=== PATIENT | female | born 1955 | race Caucasian/White ===

== ENCOUNTER 2016-07-12 12:41 | Day surgery (SDC) | payer OTHER ==
[~2016-07-12] VITALS: Ht 152.4 cm; Wt 90.7 kg
[~2016-07-12 12:41] MED LIST: ADVAIR 250/501 DISK IH; AMLODIPINE BESY10 MG PO; AMLODIPINE BESYL5 MG PO; AMOXICILLIN500 MG PO; APRESOLINE50 MG PO; ASPERDRINK81 MG PO; ATORVASTATIN CA80 MG PO; AVENTYL,PAMELOR10 MG PO; BENTYL10 MG PO; CIPRO500 MG PO; COUMADIN1 MG PO; COUMADIN2 MG PO; COUMADIN3 MG PO; COUMADIN5 MG PO; COUMADIN6 MG PO; DICYCLOMINE HCL20 MG PO; ERGOCALCIF50000 UNIT PO; FENOFIBRATE160 M1 PO; FLAGYL500 MG PO; FLUOXETINE HCL20 MG PO; FUROSEMIDE20 MG PO; FUROSEMIDE40 MG PO; GABAPENTIN300 MG PO; GLUCOPHAGE1000 MG PO; HUMALOG100 UNIT/1 SC; HYDRALAZINE HCL25 MG PO; HYDRALAZINE HCL50 MG PO; HYDROCODON-ACE1 EAC7 PO; IMDUR30 MG PO; IMDUR60 MG PO; ISOSORBIDE DINI30 MG PO; JARDIANCE10 MG PO; K-DUR20 MEQ PO; KEFLEX500 MG PO; LASIX20 MG PO; LASIX40 MG PO; LEVEMIR100 UNIT/2 SC; LEVOFLOXACIN750 MG PO; LEVOTHYROXINE100 MCG PO; LEVOXYL125 MCG PO; LEVOXYL75 MCG PO; LIPITOR80 MG PO; LISINOPRIL10 MG PO; LISINOPRIL5 MG PO; LOPRESSOR100 M1 PO; LOPRESSOR25 MG PO; LOSARTAN POTAS100 MG PO; LOVAZA1 GM PO; METOCLOPRAMIDE H5 MG PO; METOCLOPRAMIDE10 MG PO; NEURONTIN300 MG PO; NORVASC10 MG PO; NOVOLIN,HU100 UNITS1 SC; NOVOLOG 10100 UNITS/ SC; OMEPRAZOLE20 MG PO; OMEPRAZOLE40 M1 PO; PERCOCET 5/31 TABLET PO; PREDNISONE10 MG PO; PRILOSEC20 MG PO; PRILOSEC40 MG PO; PRINIVIL5 MG PO; PROAIR HFA8.5 GM IH; PROCARDIA20 MG PO; PROMETHAZINE HC25 M1 PO; PROZAC20 MG PO; PROZAC40 MG PO; RANEXA1000 MG PO; REGLAN10 MG PO; SEROQUEL12.5 MG PO; SYNTHROID75 MCG PO; TRADJENTA5 MG PO; TYLENOL REGULA325 MG PO; VESICARE10 MG PO; WARFARIN SODIUM5 MG PO; WELLBUTRIN XL150 MG PO; WELLBUTRIN XL300 MG PO; ZOFRAN4 MG PO
[2016-07-12 13:17] LABS: POINT-OF-CARE METER ID UU13113696; POINT-OF-CARE USER ID HMLCJM07
== END 2016-07-12 15:20 | disposition home or self-care (01) ==
LOC: CATH 12:41
PROVIDERS: Internal Medicine Cardiovascular Disease
PROC: 0JH63PZ Insertion of Cardiac Rhythm Related Device into Chest Subcutaneous Tissue and Fascia, Percutaneous Approach (ICD-10-PCS; principal; 2016-07-12)
DX: R55 Syncope and collapse (principal); I25.2 Old myocardial infarction; E78.5 Hyperlipidemia, unspecified; E11.9 Type 2 diabetes mellitus without complications; Z79.4 Long term (current) use of insulin; I10 Essential (primary) hypertension; I25.10 Atherosclerotic heart disease of native coronary artery without angina pectoris; I25.5 Ischemic cardiomyopathy; Z86.711 Personal history of pulmonary embolism; Z79.01 Long term (current) use of anticoagulants; Z87.891 Personal history of nicotine dependence
CPT/HCPCS: 82948; C1764; J0690; J1200; J2250; J3010; S0020

== ENCOUNTER 2016-08-16 11:59 | Inpatient (IN) | payer OTHER ==
[~2016-08-16] VITALS: Ht 167.6 cm; Wt 95.1 kg
[2016-08-16 13:06] LABS: HEMATOCRIT 29.2 % (36.0-46.0); MCH 29.5 PG (29.0-34.0); MCHC 31.8 G/DL (30.0-36.0); MCV 92.7 FL (83-99); MEAN PLAT.VOLUME 10.7 uM^3 (9.5-12.4); PLATELET COUNT 130 K/uL (156-360); RBC DIS.WIDTH-CV 15.3 % (11.8-14.6); RBC DIS.WIDTH-SD 50.7 % (39-53); RED BLOOD COUNT 3.15 M/uL (3.80-5.20); WHITE BLOOD COUNT 5.9 K/uL (4.1-10.2)
[2016-08-16 13:18] LABS: CHLORIDE 116 mEq/L (99-109); POTASSIUM 5.4 mEq/L (3.7-5.4); SODIUM 142 mEq/L (136-147)
[2016-08-16 13:20] LABS: GLUCOSE 50 mg/dL (70-99)
[2016-08-16 13:22] LABS: ANION GAP 8 MEQ/L (2-14)
[2016-08-16 13:24] LABS: GFR ESTIMATE (CALCULATED) 24 mL/min/
[2016-08-16 13:25] LABS: UREA NITROGEN (BUN) 33 mg/dL (9-23)
[2016-08-16 13:32] LABS: TROP-I INTERPRETATION NEGATIVE; TROPONIN-I < 0.01 ng/mL (0.0-0.30)
[2016-08-16 14:42] LABS: INTER. NORMALIZED RATIO 1.9; PROTHROMBIN TIME 19.5 (9.2-11.2)
[2016-08-16 15:28] LABS: POINT-OF-CARE METER ID UU14100415
[2016-08-16 16:47] LABS: POINT-OF-CARE METER ID UU14100415
[2016-08-16] MEDS ORDERED: SEROQUEL50 MG PO (16:57)
[2016-08-16] MEDS ORDERED: LASIX40 MG PO (16:58)
[2016-08-16] MEDS ORDERED: COUMADIN5 MG PO (16:59)
[2016-08-16 19:12] LABS: ADD MIUA? YES; BILIRUBIN NEGATIVE; BLOOD NEGATIVE; COLOR AMBER ((YELLOW)); GLUCOSE (STRIP) 50; KETONES NEGATIVE; LEUKOCYTES TRACE; NITRITE NEGATIVE; PROTEIN (STRIP) >=500; SPECIFIC GRAVITY 1.024 (1.000-1.030); UROBILINOGEN 0.2 MG/DL (0.2-1.0)
[2016-08-16 19:18] LABS: BACTERIA NONE SEEN /HPF; EPITHELIAL CELLS RARE /HPF; MUCUS TRACE /LPF; RED BLOOD CELLS 0-5 /HPF (0-5); UCUL ADDED? NO; WHITE BLOOD CELLS 30-40 /HPF (0-5)
[2016-08-16] MEDS ORDERED: LEVEMIR100 UNIT/2 SC ×2 (20:21→20:22)
[2016-08-16 20:30] VITALS: BP 151/79
[2016-08-16 20:43] VITALS: BP 151/71
[2016-08-16 21:36] LABS: POINT-OF-CARE USER ID ENVKC36
[2016-08-16 23:27] VITALS: BP 163/71
[2016-08-17 03:00] VITALS: BP 160/76
[2016-08-17 06:37] LABS: HEMATOCRIT 27.4 % (36.0-46.0); MCH 30.1 PG (29.0-34.0); MCHC 32.1 G/DL (30.0-36.0); MCV 93.8 FL (83-99); MEAN PLAT.VOLUME 11.4 uM^3 (9.5-12.4); PLATELET COUNT 100 K/uL (156-360); RBC DIS.WIDTH-CV 15.3 % (11.8-14.6); RBC DIS.WIDTH-SD 52.5 % (39-53); RED BLOOD COUNT 2.92 M/uL (3.80-5.20)
[2016-08-17 06:38] LABS: PTT 40.8 (25-32); WHITE BLOOD COUNT 3.5 K/uL (4.1-10.2)
[2016-08-17 06:50] LABS: ANION GAP 6 MEQ/L (2-14); CHLORIDE 112 MEQ/L (99-109); GFR ESTIMATE (CALCULATED) 23 mL/min/; GLUCOSE 53 mg/dL (70-99); POTASSIUM 5.4 MEQ/L (3.7-5.4); SAMPLE HEMOLYSIS CHECK 0; SAMPLE ICTERIC CHECK 0; SAMPLE LIPEMIA CHECK 0; SODIUM 140 MEQ/L (136-147); UREA NITROGEN (BUN) 35 mg/dL (9-23)
[2016-08-17 07:33] VITALS: BP 181/86
[2016-08-17 08:10] LABS: POINT-OF-CARE METER ID UU14174216
[2016-08-17 11:42] VITALS: BP 144/64
[2016-08-17 16:20] LABS: POINT-OF-CARE METER ID UU14174216
[2016-08-17 16:43] VITALS: BP 171/74
[2016-08-17 19:36] VITALS: BP 186/79
[2016-08-17 21:11] LABS: POINT-OF-CARE METER ID UU14174216
[2016-08-17 23:50] VITALS: BP 184/79
[2016-08-18 01:50] VITALS: BP 190/87
[2016-08-18 03:01] VITALS: BP 142/78
[2016-08-18 06:39] LABS: EOSINOPHIL (%) 1.4 % (0-5); EOSINOPHIL COUNT 0.1 K/uL (0-0.3); HEMATOCRIT 32.1 % (36.0-46.0); IMMATURE GRANULOCYTE (%) 1.1 % (0.0-0.7); IMMATURE GRANULOCYTE COUNT 0.1 K/uL; INSTRUMENT ABS NEUTROPHIL CT 6.2 K/uL; LYMPHOCYTE COUNT 0.5 K/uL (1.0-2.8); MCH 28.9 PG (29.0-34.0); MCHC 31.2 G/DL (30.0-36.0); MCV 92.8 FL (83-99); MEAN PLAT.VOLUME 11.2 uM^3 (9.5-12.4); MONOCYTE COUNT 0.4 K/uL (0-0.8); NEUTROPHIL COUNT 6.2 K/uL (1.8-6.4); RBC DIS.WIDTH-CV 15.2 % (11.8-14.6); RBC DIS.WIDTH-SD 51.3 % (39-53); RED BLOOD COUNT 3.46 M/uL (3.80-5.20)
[2016-08-18 06:42] LABS: INTER. NORMALIZED RATIO 2.3; PROTHROMBIN TIME 24.1 (9.2-11.2)
[2016-08-18 06:57] LABS: ANION GAP 9 MEQ/L (2-14); CHLORIDE 108 MEQ/L (99-109); GFR ESTIMATE (CALCULATED) 24 mL/min/; IRON 55 MCG/DL (35-150); POTASSIUM 5.2 MEQ/L (3.7-5.4); SAMPLE HEMOLYSIS CHECK 0; SAMPLE ICTERIC CHECK 0; SAMPLE LIPEMIA CHECK 0; SODIUM 138 MEQ/L (136-147); UREA NITROGEN (BUN) 36 mg/dL (9-23)
[2016-08-18 07:00] LABS: GLUCOSE 193 mg/dL (70-99)
[2016-08-18 07:08] LABS: PLATELET COUNT 132 K/uL (156-360); WHITE BLOOD COUNT 7.2 K/uL (4.1-10.2)
[2016-08-18 08:21] VITALS: BP 188/86
[2016-08-18 12:14] VITALS: BP 161/73
[2016-08-18] MEDS ORDERED: AMLODIPINE BESYL5 MG PO (12:15)
[2016-08-18] MEDS ORDERED: GABAPENTIN300 MG PO (12:15)
[2016-08-18] MEDS ORDERED: PROZAC40 MG PO (12:16)
[2016-08-18] MEDS ORDERED: SEROQUEL50 MG PO (12:17)
[2016-08-18] MEDS ORDERED: LEVEMIR100 UNIT/2 SC ×2 (12:23)
[2016-08-18] MEDS ORDERED: LEVOTHYROXINE100 MCG PO (12:26)
== END 2016-08-18 13:55 | disposition home or self-care (01) | DRG 69 ==
LOC: EXP 11:59 → EME 11:59 → EDOF 18:18 → 4EAST 19:53
PROVIDERS: Emergency Medicine; Family Medicine Sports Medicine
DX: G45.9 Transient cerebral ischemic attack, unspecified (principal); N17.9 Acute kidney failure, unspecified; E11.65 Type 2 diabetes mellitus with hyperglycemia; E11.22 Type 2 diabetes mellitus with diabetic chronic kidney disease; E87.5 Hyperkalemia; R62.7 Adult failure to thrive; I12.9 Hypertensive chronic kidney disease with stage 1 through stage 4 chronic kidney disease, or unspecified chronic kidney disease; N18.9 Chronic kidney disease, unspecified; D63.1 Anemia in chronic kidney disease; I25.10 Atherosclerotic heart disease of native coronary artery without angina pectoris; I10 Essential (primary) hypertension; E78.5 Hyperlipidemia, unspecified; F41.9 Anxiety disorder, unspecified; F32.9 Major depressive disorder, single episode, unspecified; M19.90 Unspecified osteoarthritis, unspecified site; D64.9 Anemia, unspecified; K21.9 Gastro-esophageal reflux disease without esophagitis; Z68.34 Body mass index [BMI] 34.0-34.9, adult; R07.89 Other chest pain; Z86.73 Personal history of transient ischemic attack (TIA), and cerebral infarction without residual deficits; Z79.4 Long term (current) use of insulin; Z86.711 Personal history of pulmonary embolism; Z95.5 Presence of coronary angioplasty implant and graft
CPT/HCPCS: 71020; 80048; 81003; 82948; 83540; 83880; 84439; 84443; 84466; 84484; 85025; 85027; 85610; 85730; 93005; 93880; 94640; 94799; 99202; 99281; 99285; J0360; J0610; J1815; J3360; J7050; J7120

== ENCOUNTER 2016-09-14 19:19 | Emergency (ER) | payer OTHER ==
[~2016-09-14] VITALS: Ht 152.4 cm; Wt 89.2 kg
[~2016-09-14 19:19] MED LIST changes: +SEROQUEL50 MG PO
[2016-09-14 20:23] VITALS: BP 176/74
== END 2016-09-14 20:23 | disposition home or self-care (01) ==
LOC: EME 19:19
DX: S80.02XA Contusion of left knee, initial encounter (principal); M79.672 Pain in left foot; W08.XXXA Fall from other furniture, initial encounter; I10 Essential (primary) hypertension; E11.9 Type 2 diabetes mellitus without complications; Z79.4 Long term (current) use of insulin; Z79.01 Long term (current) use of anticoagulants
CPT/HCPCS: 73564; 99281; 99283

== ENCOUNTER 2017-04-19 12:11 | Emergency (ER) | payer OTHER ==
[~2017-04-19] VITALS: Ht 152.4 cm; Wt 95.5 kg
[2017-04-19] MEDS ORDERED: FUROSEMIDE20 MG PO (16:40)
[2017-04-19 17:16] VITALS: BP 172/87
== END 2017-04-19 17:18 | disposition home or self-care (01) ==
LOC: EME 12:11
PROVIDERS: Emergency Medicine
DX: I11.0 Hypertensive heart disease with heart failure (principal); I50.9 Heart failure, unspecified; R91.8 Other nonspecific abnormal finding of lung field; R94.31 Abnormal electrocardiogram [ECG] [EKG]; K21.9 Gastro-esophageal reflux disease without esophagitis; E11.9 Type 2 diabetes mellitus without complications; J44.9 Chronic obstructive pulmonary disease, unspecified; I25.2 Old myocardial infarction; F41.9 Anxiety disorder, unspecified; F32.9 Major depressive disorder, single episode, unspecified; Z86.73 Personal history of transient ischemic attack (TIA), and cerebral infarction without residual deficits; Z87.891 Personal history of nicotine dependence; Z79.891 Long term (current) use of opiate analgesic; Z79.4 Long term (current) use of insulin; Z79.01 Long term (current) use of anticoagulants; Z99.81 Dependence on supplemental oxygen; Z95.818 Presence of other cardiac implants and grafts; Z88.8 Allergy status to other drugs, medicaments and biological substances
CPT/HCPCS: 71046; 80047; 87502; 93005

== ENCOUNTER 2017-05-22 09:04 | Emergency (ER) | payer OTHER ==
[~2017-05-22] VITALS: Ht 152.4 cm; Wt 89.1 kg
[2017-05-22 11:39] LABS: HEMATOCRIT 29.3 % (36.0-46.0); HEMOGLOBIN 9.1 G/DL (11.9-15.5); MCH 27.7 PG (29.0-34.0); MCHC 31.1 G/DL (30.0-36.0); MCV 89.1 FL (83-99); PLATELET COUNT 146 K/uL (156-360); RBC DIS.WIDTH-CV 18.1 % (11.8-14.6); RBC DIS.WIDTH-SD 59.1 % (39-53); RED BLOOD COUNT 3.29 M/uL (3.80-5.20); WHITE BLOOD COUNT 8.2 K/uL (4.1-10.2)
[2017-05-22 11:49] LABS: CHLORIDE 111 mEq/L (99-109)
[2017-05-22 11:50] LABS: POTASSIUM 4.4 mEq/L (3.7-5.4); SODIUM 139 mEq/L (136-147)
[2017-05-22 11:51] LABS: GLUCOSE 66 mg/dL (70-99)
[2017-05-22 11:55] LABS: CREATININE 2.1 mg/dL (0.6-1.3); GFR ESTIMATE (CALCULATED) 25 mL/min/
[2017-05-22 11:56] LABS: UREA NITROGEN (BUN) 30 mg/dL (9-23)
[2017-05-22 19:50] VITALS: BP 179/98
== END 2017-05-22 20:10 | disposition home or self-care (01) ==
LOC: EME 09:04
PROVIDERS: Emergency Medicine
DX: S36.029A Unspecified contusion of spleen, initial encounter (principal); W01.190A Fall on same level from slipping, tripping and stumbling with subsequent striking against furniture, initial encounter; M43.16 Spondylolisthesis, lumbar region; M48.061 Spinal stenosis, lumbar region without neurogenic claudication; M51.26 Other intervertebral disc displacement, lumbar region; I51.7 Cardiomegaly; J90 Pleural effusion, not elsewhere classified; M51.34 Other intervertebral disc degeneration, thoracic region; M25.78 Osteophyte, vertebrae; I50.9 Heart failure, unspecified; Z79.01 Long term (current) use of anticoagulants; J44.9 Chronic obstructive pulmonary disease, unspecified; I10 Essential (primary) hypertension; E11.9 Type 2 diabetes mellitus without complications; Z79.4 Long term (current) use of insulin; Z90.49 Acquired absence of other specified parts of digestive tract; Z86.73 Personal history of transient ischemic attack (TIA), and cerebral infarction without residual deficits; H54.8 Legal blindness, as defined in USA; Z87.891 Personal history of nicotine dependence
CPT/HCPCS: 71046; 71250; 72131; 74176; 74181; 80048; 85027; 99281; 99284; J2270; J2405; J7030

== ENCOUNTER → 2017-08-21 | Outpatient (CLI) | payer OTHER ==
[~2017-08-21] MED LIST changes: +CHLORTHALIDONE25 MG PO; +FEOSOL325 MG PO; +FISH OIL 1,0001 EA11 PO; +FLUOXETINE HCL40 MG PO; +HUMALOG100 UNIT/2 SC; +ISOSORBIDE DINI20 MG PO; +LANTUS 3 M100 UNITS1 SC; +LOVENOX80 MG/0.8 SC; +NIFEDIPINE ER30 MG PO; +QUETIAPINE FUMA50 MG PO; +TOPAMAX25 MG PO; +VITAMIN D5000 UNI1 PO
[2017-08-21 08:12] LABS: BASOPHIL (%) 0.6 % (0-1); EOSINOPHIL (%) 2.2 % (0-5); EOSINOPHIL COUNT 0.1 K/uL (0-0.3); HEMATOCRIT 29.7 % (36.0-46.0); HEMOGLOBIN 9.2 G/DL (11.9-15.5); IMMATURE GRANULOCYTE (%) 0.6 % (0.0-0.7); LYMPHOCYTE COUNT 0.9 K/uL (1.0-2.8); MCH 27.5 PG (29.0-34.0); MCV 88.9 FL (83-99); MONOCYTE (%) 5.8 % (3-12); MONOCYTE COUNT 0.4 K/uL (0-0.8); NEUTROPHIL (%) 76.8 % (45-76); NEUTROPHIL COUNT 4.9 K/uL (1.8-6.4); PLATELET COUNT 133 K/uL (156-360); RBC DIS.WIDTH-CV 19.7 % (11.8-14.6); RBC DIS.WIDTH-SD 63.6 % (39-53); RED BLOOD COUNT 3.34 M/uL (3.80-5.20); WHITE BLOOD COUNT 6.4 K/uL (4.1-10.2)
[2017-08-21 10:28] LABS: ABS NEUTROPHIL COUNT 5.3; ANISOCYTOSIS 1+; BAND NEUTROPHILS 1.7 % (0-8.0); BASOPHILS 0.9 %; EOSINOPHIL ABS CT 0.1; EOSINOPHILS 0.9 % (0-5.0); LYMPHOCYTES 9.6 % (15.0-45.0); MACROCYTES 1+; MICROCYTOSIS 1+; MONOCYTES 5.3 % (0-9.0); OVALOCYTES 1+; PLAT.SUFFICIENCY DECREASED; POIKILOCYTOSIS 1+; SEG.NEUTROPHILS 81.6 % (46.0-76.0)
[2017-08-24 11:51] LABS: NUMBER OF MARKERS 22; SPECIMEN TYPE BONE MARROW; SPECIMEN VIABILITY 92
== END | disposition home or self-care (01) ==
LOC: OPR 07:32 → EDSTATUS 08:00 → OPR 08:00
PROVIDERS: Internal Medicine Medical Oncology
DX: D47.2 Monoclonal gammopathy (principal); D73.5 Infarction of spleen; F41.9 Anxiety disorder, unspecified; E11.40 Type 2 diabetes mellitus with diabetic neuropathy, unspecified; E11.22 Type 2 diabetes mellitus with diabetic chronic kidney disease; E11.319 Type 2 diabetes mellitus with unspecified diabetic retinopathy without macular edema; N18.3 Chronic kidney disease, stage 3 (moderate); E53.8 Deficiency of other specified B group vitamins; I25.10 Atherosclerotic heart disease of native coronary artery without angina pectoris; Z86.73 Personal history of transient ischemic attack (TIA), and cerebral infarction without residual deficits; Z79.01 Long term (current) use of anticoagulants; Z86.711 Personal history of pulmonary embolism
CPT/HCPCS: 77012; 82948; 85007; 85025; J3010

== ENCOUNTER 2017-09-25 16:56 | Inpatient (IN) | payer OTHER ==
[~2017-09-25] VITALS: Ht 152.4 cm; Wt 77.7 kg
[~2017-09-25 16:56] MED LIST changes: -TOPAMAX25 MG PO; +TOPAMAX50 MG PO
[2017-09-25 17:35] LABS: HEMATOCRIT 30.8 % (36.0-46.0); HEMOGLOBIN 10.1 G/DL (11.9-15.5); MCH 29.1 PG (29.0-34.0); MCHC 32.8 G/DL (30.0-36.0); MCV 88.8 FL (83-99); PLATELET COUNT 154 K/uL (156-360); RBC DIS.WIDTH-CV 18.6 % (11.8-14.6); RBC DIS.WIDTH-SD 60.6 % (39-53); RED BLOOD COUNT 3.47 M/uL (3.80-5.20); WHITE BLOOD COUNT 6.9 K/uL (4.1-10.2)
[2017-09-25 17:47] LABS: ALBUMIN 3.4 g/dL (3.2-4.8); CHLORIDE 109 mEq/L (99-109); INTER. NORMALIZED RATIO 1.2; POTASSIUM 4.6 mEq/L (3.7-5.4); SODIUM 136 mEq/L (136-147)
[2017-09-25 17:50] LABS: GLUCOSE 356 mg/dL (70-99); PTT 26.2 SEC (25-37); TOTAL PROTEIN 6.7 g/dL (6.4-8.3)
[2017-09-25 17:52] LABS: TOTAL BILIRUBIN 0.3 mg/dL (0.0-1.0)
[2017-09-25 17:53] LABS: ALKALINE PHOSPHATASE 95 IU/L (3-129); CREATININE 4.2 mg/dL (0.6-1.3); GFR ESTIMATE (CALCULATED) 11 mL/min/
[2017-09-25 17:54] LABS: UREA NITROGEN (BUN) 53 mg/dL (9-23)
[2017-09-25 17:55] LABS: AST (GOT) 30 IU/L (2-34)
[2017-09-25 17:56] LABS: ALT (GPT) 22 IU/L (3-49)
[2017-09-25] MEDS ORDERED: HUMALOG100 UNIT/2 SC (19:16)
[2017-09-25] MEDS ORDERED: WARFARIN SODIUM1 MG PO (19:19)
[2017-09-25] MEDS ORDERED: CYANOCOBALAM1000 MCG PO (19:19)
[2017-09-25] MEDS ORDERED: LABETALOL HCL100 MG PO ×2 (19:22)
[2017-09-25 19:29] LABS: TROP-I INTERPRETATION NEGATIVE; TROPONIN-I 0.03 ng/mL (0.0-0.30)
[2017-09-25 21:26] LABS: CREATINE KINASE 111 IU/L (1-294)
[2017-09-25 21:27] LABS: CARBON DIOXIDE (BICARBONATE) 15.3 MEQ/L (20-31)
[2017-09-26] VITALS (9 sets, daily range): BP systolic 154–225; BP diastolic 72–93
[2017-09-26 05:56] LABS: HEMATOCRIT 28.9 % (36.0-46.0); MCH 27.3 PG (29.0-34.0); MCHC 31.1 G/DL (30.0-36.0); MCV 87.6 FL (83-99); PLATELET COUNT 139 K/uL (156-360); RBC DIS.WIDTH-CV 18.2 % (11.8-14.6); WHITE BLOOD COUNT 5.7 K/uL (4.1-10.2)
[2017-09-26 06:04] LABS: INTER. NORMALIZED RATIO 1.2
[2017-09-26 06:26] LABS: CHLORIDE 114 MEQ/L (99-109); PHOSPHORUS 4.3 mg/dL (2.5-4.9); UREA NITROGEN (BUN) 47 mg/dL (9-23)
[2017-09-26 06:34] LABS: CREATININE 3.1 MG/DL (0.6-1.3); GFR ESTIMATE (CALCULATED) 16 mL/min/; GLUCOSE 110 mg/dL (70-99); POTASSIUM 3.6 MEQ/L (3.7-5.4); SODIUM 143 MEQ/L (136-147)
[2017-09-26 12:58] LABS: APPEARANCE CLEAR ((CLEAR)); BILIRUBIN NEGATIVE; BLOOD SMALL; COLOR STRAW ((YELLOW)); GLUCOSE (STRIP) 150; KETONES NEGATIVE; LEUKOCYTES NEGATIVE; NITRITE NEGATIVE; PROTEIN (STRIP) >=500; SPECIFIC GRAVITY 1.011 (1.000-1.030); UROBILINOGEN 0.2 MG/DL (0.2-1.0)
[2017-09-26 13:13] LABS: BACTERIA RARE /HPF; EPITHELIAL CELLS RARE /HPF; HYALINE CASTS 0-5 /LPF; MUCUS TRACE /LPF; RED BLOOD CELLS 0-5 /HPF (0-5); UCUL ADDED? NO; WHITE BLOOD CELLS 0-5 /HPF (0-5)
[2017-09-26 15:29] LABS: UR CREATININE CONCENTRATION 64.6 MG/DL
[2017-09-26 16:57] LABS: CHLORIDE 111 MEQ/L (99-109); CREATININE 2.7 MG/DL (0.6-1.3); GFR ESTIMATE (CALCULATED) 19 mL/min/; GLUCOSE 118 mg/dL (70-99); POTASSIUM 3.5 MEQ/L (3.7-5.4); SODIUM 140 MEQ/L (136-147); UREA NITROGEN (BUN) 39 mg/dL (9-23)
[2017-09-27] VITALS (9 sets, daily range): BP systolic 155–226; BP diastolic 66–92
[2017-09-27 07:04] LABS: INTER. NORMALIZED RATIO 1.1
[2017-09-27 07:31] LABS: ALBUMIN 3.1 G/DL (3.2-4.8); CHLORIDE 113 MEQ/L (99-109); CREATININE 2.5 MG/DL (0.6-1.3); GFR ESTIMATE (CALCULATED) 21 mL/min/; GLUCOSE 101 mg/dL (70-99); PHOSPHORUS 3.8 mg/dL (2.5-4.9); POTASSIUM 4.2 MEQ/L (3.7-5.4); SODIUM 143 MEQ/L (136-147); UREA NITROGEN (BUN) 42 mg/dL (9-23)
[2017-09-28] VITALS (7 sets, daily range): BP systolic 122–199; BP diastolic 54–85
[2017-09-28 06:59] LABS: INTER. NORMALIZED RATIO 1.2
[2017-09-28 07:08] LABS: CHLORIDE 112 MEQ/L (99-109); CREATININE 2.7 MG/DL (0.6-1.3); GFR ESTIMATE (CALCULATED) 19 mL/min/; GLUCOSE 113 mg/dL (70-99); PHOSPHORUS 4.6 mg/dL (2.5-4.9); SODIUM 142 MEQ/L (136-147); UREA NITROGEN (BUN) 46 mg/dL (9-23)
[2017-09-29] VITALS (7 sets, daily range): BP systolic 145–196; BP diastolic 60–81
[2017-09-29 07:08] LABS: INTER. NORMALIZED RATIO 1.2
[2017-09-29 07:19] LABS: CHLORIDE 114 MEQ/L (99-109); CREATININE 2.8 MG/DL (0.6-1.3); GFR ESTIMATE (CALCULATED) 18 mL/min/; GLUCOSE 96 mg/dL (70-99); PHOSPHORUS 4.7 mg/dL (2.5-4.9); POTASSIUM 4.2 MEQ/L (3.7-5.4); SODIUM 145 MEQ/L (136-147); UREA NITROGEN (BUN) 46 mg/dL (9-23)
[2017-09-29] MEDS ORDERED: APRESOLINE50 MG PO (17:45)
[2017-09-29] MEDS ORDERED: TYLENOL REGULA325 MG PO (17:46)
== END 2017-09-29 19:16 | disposition home or self-care (01) | DRG 683 ==
LOC: EME 16:56 → EDOF 20:39 → 3EAST 20:39 → ENRESERV 20:42 → 3EAST 22:24
PROVIDERS: Emergency Medicine; Family Medicine Sports Medicine; Internal Medicine; Internal Medicine Nephrology
PROC: 0HQ1XZZ Repair Face Skin, External Approach (ICD-10-PCS; principal; 2017-09-25)
DX: N17.9 Acute kidney failure, unspecified (principal); E86.0 Dehydration; E87.2 Acidosis; E11.65 Type 2 diabetes mellitus with hyperglycemia; S01.81XA Laceration without foreign body of other part of head, initial encounter; S00.11XA Contusion of right eyelid and periocular area, initial encounter; S80.00XA Contusion of unspecified knee, initial encounter; W18.30XA Fall on same level, unspecified, initial encounter; Y93.G3 Activity, cooking and baking; Y92.000 Kitchen of unspecified non-institutional (private) residence as the place of occurrence of the external cause; I13.0 Hypertensive heart and chronic kidney disease with heart failure and stage 1 through stage 4 chronic kidney disease, or unspecified chronic kidney disease; I50.9 Heart failure, unspecified; E11.22 Type 2 diabetes mellitus with diabetic chronic kidney disease; N18.4 Chronic kidney disease, stage 4 (severe); D63.1 Anemia in chronic kidney disease; K21.9 Gastro-esophageal reflux disease without esophagitis; G43.909 Migraine, unspecified, not intractable, without status migrainosus; F41.9 Anxiety disorder, unspecified; F32.9 Major depressive disorder, single episode, unspecified; J44.9 Chronic obstructive pulmonary disease, unspecified; I25.10 Atherosclerotic heart disease of native coronary artery without angina pectoris; E78.5 Hyperlipidemia, unspecified; E11.40 Type 2 diabetes mellitus with diabetic neuropathy, unspecified; E11.319 Type 2 diabetes mellitus with unspecified diabetic retinopathy without macular edema; H54.8 Legal blindness, as defined in USA; E03.9 Hypothyroidism, unspecified; D68.52 Prothrombin gene mutation; Z99.81 Dependence on supplemental oxygen; I25.2 Old myocardial infarction; Z86.73 Personal history of transient ischemic attack (TIA), and cerebral infarction without residual deficits; Z79.4 Long term (current) use of insulin; Z79.01 Long term (current) use of anticoagulants; Z86.711 Personal history of pulmonary embolism; Z87.891 Personal history of nicotine dependence; Z95.5 Presence of coronary angioplasty implant and graft
CPT/HCPCS: 70450; 70486; 71046; 72125; 72128; 76770; 80048 91; 80053; 80069; 81003; 82436; 82550; 82570; 82803; 82948; 83036; 83605; 84156; 84300; 84484; 85027; 85610; 85730; 93005; 99202; 99281; 99285; J0360; J1644; J1815; J3010; J7040; J7120

== ENCOUNTER → 2017-10-24 | Outpatient (CLI) | payer OTHER ==
[~2017-10-24] MED LIST changes: +ASPIRIN81 M2 PO; +CYANOCOBALAM1000 MCG PO; +FISH OIL 1,0001 EAC7 PO; +LABETALOL HCL100 MG PO; +LORTAB 5-325 M1 EACH PO; +NIFEDIPINE ER60 MG PO; +WARFARIN SODIUM1 MG PO
== END | disposition home or self-care (01) ==
LOC: RAD 10:47 → EDSTATUS 11:00
PROC: 0W993ZZ Drainage of Right Pleural Cavity, Percutaneous Approach (ICD-10-PCS; principal; 2017-10-24)
DX: J90 Pleural effusion, not elsewhere classified (principal)
CPT/HCPCS: 76942

== ENCOUNTER 2017-11-03 11:47 | Inpatient (IN) | payer OTHER ==
[~2017-11-03] VITALS: Ht 152.4 cm; Wt 79.3 kg
[2017-11-03 12:46] LABS: HEMATOCRIT 26.5 % (36.0-46.0); HEMOGLOBIN 8.3 G/DL (11.9-15.5); MCH 27.6 PG (29.0-34.0); MCHC 31.3 G/DL (30.0-36.0); PLATELET COUNT 213 K/uL (156-360); RBC DIS.WIDTH-CV 17.7 % (11.8-14.6); RED BLOOD COUNT 3.01 M/uL (3.80-5.20); WHITE BLOOD COUNT 8.8 K/uL (4.1-10.2)
[2017-11-03 12:55] LABS: PTT 43.2 SEC (25-37)
[2017-11-03 13:10] LABS: TROP-I INTERPRETATION NEGATIVE; TROPONIN-I 0.02 ng/mL (0.0-0.30)
[2017-11-03 13:13] LABS: INTER. NORMALIZED RATIO 4.6
[2017-11-03 13:24] LABS: ALBUMIN 2.9 G/DL (3.2-4.8); ALKALINE PHOSPHATASE 101 IU/L (3-129); ALT (GPT) 22 IU/L (3-49); AST (GOT) 27 IU/L (2-34); CHLORIDE 115 MEQ/L (99-109); CREATININE 1.9 MG/DL (0.6-1.3); GFR ESTIMATE (CALCULATED) 28 mL/min/; GLUCOSE 119 mg/dL (70-99); POTASSIUM 3.8 MEQ/L (3.7-5.4); SODIUM 140 MEQ/L (136-147); TOTAL BILIRUBIN 0.3 MG/DL (0.0-1.0); TOTAL PROTEIN 6.2 G/DL (6.4-8.3); UREA NITROGEN (BUN) 25 mg/dL (9-23)
[2017-11-03 19:47] VITALS: BP 135/64
[2017-11-03 23:11] VITALS: BP 116/53
[2017-11-03 23:15] VITALS: BP 169/74
[2017-11-04] VITALS (7 sets, daily range): BP systolic 139–193; BP diastolic 58–78
[2017-11-04 05:03] LABS: CARBON DIOXIDE (BICARBONATE) 18.4 MEQ/L (20-31)
[2017-11-04 05:06] LABS: BASOPHIL (%) 0.6 % (0-1); EOSINOPHIL (%) 1.6 % (0-5); EOSINOPHIL COUNT 0.1 K/uL (0-0.3); HEMATOCRIT 24.5 % (36.0-46.0); HEMOGLOBIN 7.5 G/DL (11.9-15.5); IMMATURE GRANULOCYTE (%) 0.4 % (0.0-0.7); LYMPHOCYTE (%) 8.7 % (15-42); LYMPHOCYTE COUNT 0.6 K/uL (1.0-2.8); MCH 27.7 PG (29.0-34.0); MCHC 30.6 G/DL (30.0-36.0); MCV 90.4 FL (83-99); MONOCYTE (%) 6.8 % (3-12); MONOCYTE COUNT 0.5 K/uL (0-0.8); NEUTROPHIL (%) 81.9 % (45-76); NEUTROPHIL COUNT 5.6 K/uL (1.8-6.4); PLATELET COUNT 212 K/uL (156-360); RBC DIS.WIDTH-CV 17.6 % (11.8-14.6); RBC DIS.WIDTH-SD 58.9 % (39-53); RED BLOOD COUNT 2.71 M/uL (3.80-5.20); WHITE BLOOD COUNT 6.8 K/uL (4.1-10.2)
[2017-11-04 06:10] LABS: CHLORIDE 116 MEQ/L (99-109); GFR ESTIMATE (CALCULATED) 27 mL/min/; MAGNESIUM 1.6 mg/dl (1.3-2.7); POTASSIUM 3.8 MEQ/L (3.7-5.4); SODIUM 142 MEQ/L (136-147); UREA NITROGEN (BUN) 24 mg/dL (9-23)
[2017-11-04 06:12] LABS: GLUCOSE 87 mg/dL (70-99)
[2017-11-04 10:00] LABS: STOOL OCCULT BLD 1ST SPECIMEN NEGATIVE
[2017-11-04 10:41] LABS: C DIFF TOXIN POSITIVE (NEGATIVE)
[2017-11-05] VITALS (8 sets, daily range): BP systolic 121–176; BP diastolic 58–77
[2017-11-05 07:53] LABS: CHLORIDE 116 MEQ/L (99-109); CREATININE 2.3 MG/DL (0.6-1.3); GFR ESTIMATE (CALCULATED) 23 mL/min/; MAGNESIUM 1.6 mg/dl (1.3-2.7); POTASSIUM 3.8 MEQ/L (3.7-5.4); SODIUM 142 MEQ/L (136-147); UREA NITROGEN (BUN) 27 mg/dL (9-23)
[2017-11-05 07:55] LABS: GLUCOSE 178 mg/dL (70-99)
[2017-11-05 12:23] LABS: BASOPHIL (%) 0.5 % (0-1); EOSINOPHIL (%) 1.5 % (0-5); EOSINOPHIL COUNT 0.1 K/uL (0-0.3); IMMATURE GRANULOCYTE (%) 0.5 % (0.0-0.7); LYMPHOCYTE (%) 8.4 % (15-42); LYMPHOCYTE COUNT 0.6 K/uL (1.0-2.8); MCH 27.9 PG (29.0-34.0); MCHC 30.4 G/DL (30.0-36.0); MCV 91.6 FL (83-99); MONOCYTE COUNT 0.4 K/uL (0-0.8); NEUTROPHIL (%) 83.1 % (45-76); NEUTROPHIL COUNT 5.4 K/uL (1.8-6.4); PLATELET COUNT 211 K/uL (156-360); RBC DIS.WIDTH-CV 17.9 % (11.8-14.6); RED BLOOD COUNT 2.51 M/uL (3.80-5.20); WHITE BLOOD COUNT 6.5 K/uL (4.1-10.2)
[2017-11-06] VITALS (11 sets, daily range): BP systolic 117–170; BP diastolic 70–84
[2017-11-06 06:08] LABS: BASOPHIL (%) 0.3 % (0-1); EOSINOPHIL (%) 1.9 % (0-5); EOSINOPHIL COUNT 0.1 K/uL (0-0.3); HEMATOCRIT 25.2 % (36.0-46.0); HEMOGLOBIN 7.9 G/DL (11.9-15.5); IMMATURE GRANULOCYTE (%) 0.7 % (0.0-0.7); LYMPHOCYTE (%) 11.1 % (15-42); LYMPHOCYTE COUNT 0.7 K/uL (1.0-2.8); MCH 28.1 PG (29.0-34.0); MCHC 31.3 G/DL (30.0-36.0); MCV 89.7 FL (83-99); MONOCYTE (%) 5.6 % (3-12); MONOCYTE COUNT 0.3 K/uL (0-0.8); NEUTROPHIL (%) 80.4 % (45-76); NEUTROPHIL COUNT 4.7 K/uL (1.8-6.4); PLATELET COUNT 184 K/uL (156-360); RBC DIS.WIDTH-CV 17.2 % (11.8-14.6); RED BLOOD COUNT 2.81 M/uL (3.80-5.20); WHITE BLOOD COUNT 5.9 K/uL (4.1-10.2)
[2017-11-06 06:34] LABS: CHLORIDE 115 MEQ/L (99-109); GFR ESTIMATE (CALCULATED) 18 mL/min/; GLUCOSE 195 mg/dL (70-99); MAGNESIUM 1.6 mg/dl (1.3-2.7); SODIUM 142 MEQ/L (136-147); UREA NITROGEN (BUN) 33 mg/dL (9-23)
[2017-11-06 06:35] LABS: CREATININE 2.8 MG/DL (0.6-1.3)
[2017-11-06 06:37] LABS: INTER. NORMALIZED RATIO 1.9
[2017-11-07 00:22] VITALS: BP 132/74
[2017-11-07 04:05] VITALS: BP 162/73
[2017-11-07 05:56] LABS: INTER. NORMALIZED RATIO 1.4
[2017-11-07 06:01] LABS: BASOPHIL (%) 0.3 % (0-1); EOSINOPHIL (%) 2.3 % (0-5); EOSINOPHIL COUNT 0.1 K/uL (0-0.3); HEMATOCRIT 29.2 % (36.0-46.0); HEMOGLOBIN 9.2 G/DL (11.9-15.5); IMMATURE GRANULOCYTE (%) 0.6 % (0.0-0.7); LYMPHOCYTE (%) 9.3 % (15-42); LYMPHOCYTE COUNT 0.6 K/uL (1.0-2.8); MCH 28.1 PG (29.0-34.0); MCHC 31.5 G/DL (30.0-36.0); MCV 89.3 FL (83-99); MONOCYTE (%) 6.1 % (3-12); MONOCYTE COUNT 0.4 K/uL (0-0.8); NEUTROPHIL (%) 81.4 % (45-76); NEUTROPHIL COUNT 5.1 K/uL (1.8-6.4); PLATELET COUNT 174 K/uL (156-360); RBC DIS.WIDTH-CV 16.9 % (11.8-14.6); RBC DIS.WIDTH-SD 55.7 % (39-53); RED BLOOD COUNT 3.27 M/uL (3.80-5.20); WHITE BLOOD COUNT 6.2 K/uL (4.1-10.2)
[2017-11-07 06:16] LABS: CHLORIDE 114 MEQ/L (99-109); CREATININE 2.5 MG/DL (0.6-1.3); GFR ESTIMATE (CALCULATED) 21 mL/min/; GLUCOSE 185 mg/dL (70-99); MAGNESIUM 1.7 mg/dl (1.3-2.7); POTASSIUM 4.4 MEQ/L (3.7-5.4); SODIUM 141 MEQ/L (136-147); UREA NITROGEN (BUN) 37 mg/dL (9-23)
[2017-11-07 08:04] VITALS: BP 144/80
[2017-11-07 15:56] VITALS: BP 138/76
[2017-11-08 01:22] VITALS: BP 154/72
[2017-11-08 04:22] VITALS: BP 154/72
[2017-11-08 06:13] LABS: INTER. NORMALIZED RATIO 1.5
[2017-11-08 06:31] LABS: CHLORIDE 114 MEQ/L (99-109); CREATININE 2.4 MG/DL (0.6-1.3); GFR ESTIMATE (CALCULATED) 22 mL/min/; GLUCOSE 186 mg/dL (70-99); POTASSIUM 4.4 MEQ/L (3.7-5.4); SODIUM 141 MEQ/L (136-147); UREA NITROGEN (BUN) 40 mg/dL (9-23)
[2017-11-08 07:45] VITALS: BP 148/88
[2017-11-08 11:28] VITALS: BP 135/63
[2017-11-08] MEDS ORDERED: VANCOMYCIN125 MG/2.5 PO (13:50)
== END 2017-11-08 16:16 | disposition home or self-care (01) | DRG 292 ==
LOC: EME 11:47 → 2EAST 15:30 → EDOF 15:30 → ENRESERV 15:45 → 2EAST 18:58
PROVIDERS: Emergency Medicine; Family Medicine; Family Medicine Sports Medicine; Internal Medicine
PROC: 30233N1 Transfusion of Nonautologous Red Blood Cells into Peripheral Vein, Percutaneous Approach (ICD-10-PCS; principal; 2017-11-05)
DX: I13.0 Hypertensive heart and chronic kidney disease with heart failure and stage 1 through stage 4 chronic kidney disease, or unspecified chronic kidney disease (principal); J96.11 Chronic respiratory failure with hypoxia; I16.1 Hypertensive emergency; N17.9 Acute kidney failure, unspecified; E87.2 Acidosis; E87.5 Hyperkalemia; I50.9 Heart failure, unspecified; N25.81 Secondary hyperparathyroidism of renal origin; N18.4 Chronic kidney disease, stage 4 (severe); E11.22 Type 2 diabetes mellitus with diabetic chronic kidney disease; E11.21 Type 2 diabetes mellitus with diabetic nephropathy; E11.319 Type 2 diabetes mellitus with unspecified diabetic retinopathy without macular edema; E11.42 Type 2 diabetes mellitus with diabetic polyneuropathy; E03.9 Hypothyroidism, unspecified; Z95.5 Presence of coronary angioplasty implant and graft; K21.9 Gastro-esophageal reflux disease without esophagitis; I25.10 Atherosclerotic heart disease of native coronary artery without angina pectoris; J44.0 Chronic obstructive pulmonary disease with (acute) lower respiratory infection; I48.2 Chronic atrial fibrillation; D63.1 Anemia in chronic kidney disease; Z99.81 Dependence on supplemental oxygen; A04.72 Enterocolitis due to Clostridium difficile, not specified as recurrent; E78.5 Hyperlipidemia, unspecified; F41.9 Anxiety disorder, unspecified; E66.9 Obesity, unspecified; D68.59 Other primary thrombophilia; G43.909 Migraine, unspecified, not intractable, without status migrainosus; H54.8 Legal blindness, as defined in USA; E55.9 Vitamin D deficiency, unspecified; Z82.49 Family history of ischemic heart disease and other diseases of the circulatory system; Z87.891 Personal history of nicotine dependence; Z79.01 Long term (current) use of anticoagulants; Z86.711 Personal history of pulmonary embolism; Z86.73 Personal history of transient ischemic attack (TIA), and cerebral infarction without residual deficits; Z68.34 Body mass index [BMI] 34.0-34.9, adult; I25.2 Old myocardial infarction
CPT/HCPCS: 36600; 71046; 71250; 80048; 80053; 82272; 82803; 82948; 83605; 83735; 83880; 84484; 85025; 85027; 85610; 85730; 86850; 86900; 86901; 86920; 87040; 87493; 93005; 94640; 94760; 94799; 99281; 99285; J0696; J1815; J1940; P9016